=== PATIENT | female | born 1985 | race Asian ===

== ENCOUNTER 2024-12-30 22:13 | Emergency (ER) | payer OTHER, SELFPAY ==
[2024-12-30 22:17] VITALS: BP 89/52; PULSE 77; RESP 14; TEMP 36.8; O2SAT 98; BMI 17.6
--- OUTSIDE RECORDS SUMMARY | 2024-12-30 22:17 | XMS_ITS | Patient Health Record ---
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
--- OUTSIDE RECORDS SUMMARY | 2024-12-30 22:17 | XMS_ITS | Encounter Summary ---
Author Organization [facility] Address [address] [place] [address] Care Team Providers Care Manager Cancer Name Role Phone Unavailable Primary Care Provider Unavailabl e Reason for Referral * EVAL & TREAT (Routine) - Authorized Specialty Diagnoses / Procedures Referred By Brenna owens Referred To Contact Obstetrics and Gynecology Diagnoses High-risk GENETIC COUNSELING FIRST TRIMESTER AT INCREASE RISK: AGE 39 Health Unit, [address] [address] Phone: tel: fax: [facility] High-risk Program [address] [place] [address] Phone: tel: fax: Referral ID Status Reason Start Date Expiration Date Visits Requested Visits Authorized [id number] Authorized Specialty Services Required 4 06/20/2025 1 1 Question Answer Is this OB or DRIVE TESTER? 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
--- OUTSIDE RECORDS SUMMARY | 2024-12-30 22:17 | XMS_ITS | Clinical Summary ---
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 Gender Identity Not on file Sexual Orientation Not on file Plan of Treatment Health Maintenance Due Date Last Done Comments Hepatitis C Screening 1987 Anxiety Screening 1995 HIV Screening 2002 Depression Screening 2005 Hepatitis B Vaccine (1 of 3 - 19+ 3-dose series) 2006 TDAP/DTaP/TD Vaccines (1 - Tdap) 2006 Pap Smear 2008 Cervical Cancer Screening (30-65) 2017 HPV/Cotest 2017 COVID-19 Vaccine (3 - 2023-2 5 season) 2024 04/11/2021, 03/21/2021 Influenza Series (Season Ended) 2025 Meningococcal B Vaccine Aged Out No l onger eligible based on patient's age to complete this topic Pneumococcal Vaccine 0-50 years Aged Out No longer eligible b ased on patient's age to complete this topic Insurance [place] [id number] [place] MEDICAID-NO REFERRAL REQ
[2024-12-30 23:04] LABS: Basophils % 0.1 %; Eosinophils # 0.1 10^3/uL (0.0-0.8); Eosinophils % 0.5 %; Hematocrit 43.1 % (36-47); Lymphocytes # 0.7 10^3/uL (0.8-4.8); Lymphocytes % 6.6 %; Mean Corpuscular HGB Conc 33.6 g/dL (30-55); Mean Corpuscular Hemoglobin 30.1 pg (27-33); Mean Corpuscular Volume 89.4 fl (85-98); Mean Platelet Volume 10.5 fL (7.4-10.4); Monocytes # 0.5 10^3/uL (0.2-0.9); Monocytes % 4.3 %; Neutrophils # 9.21 10^3/uL (1.8-7.7); Neutrophils % 88.3 %; Nucleated Red Blood Cells % 0 %; Platelet Count 234 10^3/cmm (157-399); Red Blood Count 4.82 10^6/uL (3.85-5.65); Red Cell Distribution Width 12.3 % (12.1-15.1); White Blood Count 10.43 10^3/uL (3.29-11.43)
[2024-12-30] MEDS: sodium chloride 0.9% 1,000 ML 999 ML IV (23:07)
[2024-12-30 23:19] LABS: INR 0.95 (0.8-1.2)
[2024-12-30 23:20] LABS: Partial Thromboplastin Time 31.4 SECONDS (23.9-36.7)
[2024-12-30 23:45] LABS: Alanine Aminotransferase 45 U/L (0-33); Albumin Level 4.4 g/dL (3.5-5.2); Alkaline Phosphatase 90 U/L (35-105); Anion Gap 18.9 (5-19); Aspartate Amino Transferase 29 U/L (0-32); Blood Urea Nitrogen 6 mg/dL (6-20); Calcium 9.4 mg/dL (8.5-10.5); Carbon Dioxide 21 mmol/L (22-29); Chloride 97 mmol/L (98-107); Globulin 3.9 g/dL (1.3-4.6); Glomerular Filtration Rate 138.8 mL/min (90-130); Glucose 150 mg/dL (65-115); Osmolality Calculated 276 mOsm/kg (285-295); Potassium 3.9 mmol/L (3.5-5.1); Sodium 133 mmol/L (136-145); Total Bilirubin 0.5 mg/dL (0.15-1.2); Total Protein 8.3 g/dL (6.6-8.7)
--- NOTE | 2024-12-31 00:24 | USR_ITS ---
PROCEDURE INFORMATION: Exam: US First Trimester, Transabdominal and US , Transvaginal Exam date and time: 12/31/2024 12:27 AM Age: 39 years old Clinical indication: Lmp or gestational age (in weeks): 11/02/2024; Other: Vaginal bleeding; Additional info: Vaginal bleeding in preg LABS AND CLINICAL REPORTS: Last menstrual period start date: 11/02/2024 TECHNIQUE: Imaging protocol: Real-time transabdominal obstetrical ultrasound of the maternal pelvis and a first trimester , less than 14 weeks 0 days, with image documentation. Transvaginal imaging was used for better evaluation of the fetus, adnexa, and/or cervix. COMPARISON: No relevant prior studies available. FINDINGS: GESTATION: Gestation: Thickened endometrium without visible gestational sac. Embryo/ cardiac activity (BPM): Not applicable Extra-embryonic membranes/Placenta: Not applicable. Amniotic/Chorionic fluid: Not applicable. BIOMETRY: Gestational age (AUA): Not applicable MATERNAL: Uterus: Endometrial echo complex measures up to 2.0 cm in thickness and demonstrates scattered small cystic foci. Cervix: Unremarkable. Endocervical canal is closed. Right ovary/adnexa: Physiologic appearance of the right ovary measuring 2.4 x 2.0 x 1.9 cm for a volume of 5 cc. Color Doppler flow imaging and spectral analysis confirm appropriate arterial and venous waveforms. Left ovary/adnexa: Physiologic appearance of the left ovary measuring 2.7 x 1.8 x 1.8 cm for a volume of 5 cc.Color Doppler flow imaging and spectral analysis confirm appropriate arterial and venous waveforms. Intraperitoneal space: No extraovarian adnexal mass. No pelvic free fluid. US/US OB <= 14 weeks fetus [id number] IMPRESSION: 1. of unknown location. Thickened heterogeneous endometrial echo complex. Findings could reflect in progress, but gestational trophoblastic disease is also a possibility. Correlate with serial HCG and ultrasound to clarify. 2. Physiologic appearance each ovary with normal blood flow.
[2024-12-31 00:51] VITALS: BP 105/55; PULSE 64; RESP 18; O2SAT 98
--- NOTE | 2024-12-31 01:10 | ED_ITS ---
HPI - Female Genitourinary 2 General: Chief complaint: Vaginal Bleeding Stated complaint: spotting, believes miscarriage History of Present Illness: 39-year-old female, G3, P1, who believes she is 4 to 5 weeks . She presents with brisk vaginal bleeding. She had 2 episodes of a large amount of clot and bleeding in the pull-up at home. She had intense cramping at home as well. She has had a miscarriage before, back in August, and it felt similar. No fever. No vomiting. She has not had an appointment with OB as of yet. Related Data Home Medications ?Medication ?Instructions ?Recorded ?Confirmed loratadine 10 mg tablet (Claritin) 10 mg PO DAILY 11/0311/23/24 Previous Rx's ?Medication ?Instructions ?Recorded amoxicillin 875 mg-potassium 1 tab PO BID 10 days #20 tabs 11/23/24 clavulanate 125 mg tablet Allergies Allergy/AdvReac Type Severity Reaction Status Date / Time No Known Allergies Allergy Verified 11/23/24 10:51 PFSH ED 2 PFSH: Social History Smoking and tobacco/nicotine status: never used tobacco/nicotine Physical Exam 2 Const: COMMON NORMALS: no acute distress GENERAL APPEARANCE: cooperative; not ill appearing and not frail appearing HENMT: COMMON NORMALS: normocephalic, atraumatic and Normal external nose present HEAD & SCALP: normocephalic and atraumatic FACE & SINUS: normal facial exam and face symmetric NOSE: Normal external nose present Eye: COMMON NORMALS: Equal, round and reactive pupils present and EOMs intact bilaterally PUPIL: Yes Equal, round and reactive pupils present Neck/C-Spine: GENERAL: Yes trachea midline Chest: CHEST: Yes Symmetrical chest wall rise Resp: COMMON NORMALS: normal respiratory effort, No retractions, No use of accessory muscles and clear to auscultation bilaterally AUSCULTATION: clear to auscultation bilaterally Cardio: COMMON NORMALS: regular rate and regular rhythm RATE: regular rate RHYTHM: regular rhythm GI: COMMON NORMALS: Normal to inspection, nondistended, normoactive bowel sounds present Back/Pelvis: OTHER: Some mild suprapubic tenderness. Neuro: BELLA COMA SCALE: document GCS findings [place] coma scale eye opening: Spontaneous [place] coma scale verbal response: Orientated [place] coma scale motor response: Obey commands [place] coma scale total score: 15 S ENSORY EXAM: Yes extremities (intact) Psych: COMMON NORMALS: speech normal SPEECH: Yes normal speech Skin: COMMON NORMALS: no rashes or lesions noted GENERAL SKIN EXAM: no rashes or lesions noted Course 2 Vital Signs: Vital signs: Vital Signs Temperature 98.3 F 12/30/24 22:17 Pulse Rate 52 L 12/31/24 01:19 Respiratory Rate 16 12/31/24 01:19 Blood Pressure 104/62 12/31/24 01:19 Pulse Oximetry 98 12/31/24 01:19 Oxygen Delivery Me thod Room Air 12/31/24 00:51 MDM - Female Medical Decision Making Initial blood pressure was soft. Improved after fluid bolus. Other vitals normal. Pain is improved. Bleeding is slowed. Nor passage of clots or tissue. CBC is normal. BMP is not remarkable. Liver enzymes are not remarkable. Ultrasound reveals no pole in the uterus. With quantitative hCG at 10,000, sac should be visible. Patient shows me pictures, of the likely tissue passage. Cervix is closed. This is likely a completed . She has an appointment with OB tomorrow (Wednesday) at this point. She will need repeat hCG testing. She will return for continued risk bleeding. She is Rh+. She will be allowed discharge. Lab Data 12/30/24 22:56 12/30/24 22:56 Radiology Impressions Ultrasound 12/31/24 00:24 IMPRESSION: 1. of unknown location. Thickened heterogeneous endometrial echo complex. Findings could reflect in progress, but gestational trophoblastic disease is also a possibility. Correlate with serial HCG and ultrasound to clarify. 2. Physiologic appearance each ovary with normal blood flow. Laboratory Results WBC 10.43 10^3/uL (3.29-11.43) 12/30/24 22:56 RBC 4.82 10^6/uL (3.85-5.65) 12/30/24 22:56 Hgb 14.50 g/dL (11.27-16.99) 12/30/24 22:56 Hct 43.1 % (36-47) 12/30/24 22:56 MCV 89.4 fl (85-98) 12/30/24 22:56 MCH 30.1 pg (27-33) 12/30/24 22:56 MCHC 33.6 g/dL (30-55) 12/30/24 22:56 RDW 12.3 % (12.1-15.1) 12/30/24 22:56 Plt Count 234 10^3/cmm (157-399) 12/30/24 22:56 MPV 10.5 fL (7.4-10.4) H 12/30/24 22:56 Neut % (Auto) 88.3 % 12/30/24 22:56 Lymph % (Auto) 6.6 % 12/30/24 22:56 [place] % (Auto) 4.3 % 12/30/24 22:56 Eos % (Auto) 0.5 % 12/30/24 22:56 Baso % (Auto) 0.1 % 12/30/24 22:56 Neut # (Auto) 9.21 10^3/uL (1.8-7.7) H 12/30/24 22:56 Lymph # (Auto) 0.7 10^3/uL (0.8-4.8) L 12/30/24 22:56 [place] # (Auto) 0.5 10^3/uL (0.2-0.9) 12/30/24 22:56 Eos # (Auto) 0.1 10^3/uL (0.0-0.8) 12/30/24 22:56 Baso # (Auto) 0.0 10^3/uL (0.0-0.1) 12/30/24 22:56 Nucleated RBC % (auto) 0 % 12/30/24 22:56 Nucleated RBCs # 0.0 /100WBC 12/30/24 22:56 PT 13.30 SECONDS (12.1-14.9) 12/30/24 22:56 INR 0.95 (0.8-1.2) 12/30/24 22:56 APTT 31.4 SECONDS (23.9-36.7) 12/30/24 22:56 Sodium 133 mmol/L (136-145) L 12/30/24 22:56 Potassium 3.9 mmol/L (3.5-5.1) 12/30/24 22:56 Chloride 97 mmol/L (98-107) L 12/30/24 22:56 Carbon Dioxide 21 mmol/L (22-29) L 12/30/24 22:56 Anion Gap 18.9 (5-19) 12/30/24 22:56 BUN 6 mg/dL (6-20) 12/30/24 22:56 Creatinine 0.5 mg/dL (0.5-0.9) 12/30/24 22:56 GFR Calculation 138.8 mL/min (90-130) H 12/30/24 22:56 Glucose 150 mg/dL (65-115) H 12/30/24 22:56 Calculated Osmolality 276 mOsm/kg (285-295) L 12/30/24 22:56 Calcium 9.4 mg/dL (8.5-10.5) 12/30/24 22:56 Total Bilirubin 0.5 mg/dL (0.15-1.2) 12/30/24 22:56 AST 29 U/L (0-32) 12/30/24 22:56 ALT 45 U/L (0-33) H 12/30/24 22:56 Alkaline Phosphatase 90 U/L (35-105) 12/30/24 22:56 Total Protein 8.3 g/dL (6.6-8.7) 12/30/24 22:56 Albumin 4.4 g/dL (3.5-5.2) 12/30/24 22:56 Globulin 3.9 g/dL (1.3-4.6) 12/30/24 22:56 Ser , Semi-Qnt 9986.00 mIU/mL 12/30/24 22:56 Blood Type B Positive 12/30/24 22:56 Rho(D) Type Rh positive 12/30/24 22:56 Antibody Screen Negative 12/30/24 22:56 All radiology interpretation(s) finalized by discharge Discharge Plan Discharge Patient Disposition: Home Clinical Impression: Complete Condition: Stable Prescriptions: No Action loratadine [Claritin] 10 mg tablet 10 mg PO DAILY amoxicillin-pot clavulanate 875-125 mg tablet 1 tab PO BID 10 Days Qty: 20 0RF Discharge Orders: Discharge ED (Routine); Ordered 12/31/24 Ordered By: Matias Huynh Patient Instructions: Miscarriage (ED), Opioid Safety, Pain Management, Patient Portal & [place] Instructions Activity Restrictions/Additional Instructions: Return to the emergency department for brisk vaginal bleeding, soaking 1 pad per hour or more for 3 consecutive hours or more. Return for worsening pain, fever, vomiting liquids, any other concerning symptoms. Keep your appointment on Wednesday. Pelvic rest (limit stairs, stooping, climbing, limit lifting greater than 10 pounds, no intercourse) until cleared by your doctor. Stand Alone Forms: Work/School Release Print Language: Maori Coding Level of Care Code ED Dredge Or [place]ge Shore Hand for Arabella Snyder
[2024-12-31 01:19] VITALS: BP 104/62; PULSE 52; RESP 16; O2SAT 98
== END 2024-12-31 01:20 | disposition home or self-care (01) ==
PROVIDERS: Emergency Provider Emergency Medicine
DX: O03.9 Complete or unspecified spontaneous abortion without complication (principal)
CPT/HCPCS: 76801; 80053; 84702; 85025; 85610; 85730; 86850; 86900; 96360; 96361; 99284; J7030

== ENCOUNTER → 2025-01-01 11:26 | Outpatient (BNVA) | payer OTHER, SELFPAY | PROVIDERS: Visit Provider Nurse Practitioner Women's Health | DX: N91.2 Amenorrhea, unspecified (principal); O03.9 Complete or unspecified spontaneous abortion without complication; Z3A.00 Weeks of gestation of pregnancy not specified | CPT/HCPCS: 76817; 84702 ==

== ENCOUNTER → 2025-01-11 10:33 | Outpatient (BNVA) | payer OTHER, SELFPAY | PROVIDERS: Visit Provider Nurse Practitioner Women's Health | DX: O03.9 Complete or unspecified spontaneous abortion without complication (principal) | CPT/HCPCS: 84702 ==